=== PATIENT | female | born 1960 | race Caucasian/White ===

== ENCOUNTER → 2018-06-13 | Outpatient (CLI) | payer OTHER ==
[2018-06-13 10:57] VITALS: BP 137/85; PULSE 77; RESP 18; TEMP 98; BMI 28.0
--- NOTE | 2018-06-13 11:22 | P.GSHP ---
History of Present Illness H&P Date: 06/13/18 Chief Complaint: bilateral mastectomy Aide is a 57-year-old white female status post bilateral mastectomy with reconstruction in April 2017. She did not have breast cancer at that time however had a very strong family history with one sister at age 59 of breast cancer and a second sister who have been diagnosed with breast cancer. She was tested for the BRCA1 gene and found to be negative. The time of surgery the right breast revealed benign breast tissue with duct ectasia, apocrine metaplasia, focal papillary hyperplasia, fat necrosis and focal columnar cell change the left breast revealed benign breast tissue with duct ectasia, apocrine metaplasia and fat necrosis. Patient at this time has no complaints related to the breast surgery or reconstruction. Family history: 1. Sister of breast cancer at age 59 2. Second sister diagnosed with breast cancer/second breast cancer in opposite breast Hormonal History: menarche: 12 : 2, first born at 22, 2 children, breast fed: no Menopause: 54 BCP: 1 year hormones: none Surgical history: 1. Bilateral mastectomy with reconstruction 2. 2 3. Hysterectomy did not remove ovaries 4. tonsil 5. total thyroid/hyperactive Medical history: negative Social history: Smoke: Negative alcohol: Negative drugs: Negative - Constitutional Constitutional: Denies chills, Denies fever - EENT Eyes: denies blurred vision, denies pain Ears, nose, mouth and throat: Denies headache, Denies sore throat - Breasts Breasts: bilateral: as per HPI - Cardiovascular Cardiovascular: Denies chest pain, Denies shortness of breath - Respiratory Respiratory: Denies cough, Denies 7 - Gastrointestinal Gastrointestinal: Denies abdominal pain, Denies diarrhea, Denies nausea, Denies vomiting - Genitourinary (Female) Genitourinary: Denies dysuria, Denies hematuria - Musculoskeletal Musculoskeletal: Denies myalgias - Integumentary Integumentary: Denies pruritus, Denies rash - Neurological Neurological: Denies numbness, Denies weakness - Psychiatric Psychiatric: Denies anxiety, Denies depression - Endocrine Endocrine: Denies fatigue, Denies weight change - Hematologic/Lymphatic Comment: none - Allergic/Immunologic Comment: PCN Allergic/Immunologic: Reports seasonal allergies Past Medical History Past Medical History: Thyroid Disorder Additional Past Medical History / Comment(s): SINUS/ ALLERGIES History of Any Multi-Drug Resistant Organisms: None Reported Past Surgical History: Section, Hysterectomy, Tonsillectomy Additional Past Surgical History / Comment(s): THYROIDECTOMY. LYMPH NODES REMOVED FROM LT SIDE OF NECK AT AGE 4YR. bilateral mastectomy 2017 with reconstruction Past Anesthesia/Blood Transfusion Reactions: No Reported Reaction Past Psychological History: No Psychological Hx Reported Smoking Status: Former smoker Past Alcohol Use History: Occasional Past Drug Use History: None Reported - Past Family History Sister(s) Family Medical History: Cancer Medications and Allergies Home Medications Medication Instructions Recorded Confirmed Type Levothyroxine Sodium [Synthroid] 200 mcg PO DAILY 04/20/14 06/13/18 History Allergies Allergy/AdvReac Type Severity Reaction Status Date / Time Penicillins Allergy Anaphylaxis Verified 06/13/18 10:56 Surgical - Exam Vital Signs Temp Pulse Resp BP Pulse Ox 98 F 77 18 137/85 99 06/13/18 10:47 06/13/18 10:47 06/13/18 10:47 06/13/18 10:47 06/13/18 10:47 BMI 28.1 - General well developed, well nourished, no distress - Eyes normal ocular movement, no icteric - ENT no hearing loss, decreased hearing - Neck no masses, trachea midline - Respiratory normal respiratory effort, clear to auscultation - Cardiovascular Rhythm: regular Heart Sounds: normal: S1, S2 - Abdomen Abdomen: soft, non tender, no guarding, no rigid, no rebound - Integumentary no rash, no abnormal pigmentation - Neurologic no disoriented, no combative - Musculoskeletal normal gait, normal posture - Psychiatric oriented to time, oriented to person, oriented to place, speech is normal, memory intact Breast Exam: right breast: status post bilateral mastectomy and reconstruction, patient of the right reconstructed breast does not reveal any dominant masses or nodules of concern Right axilla: No adenopathy of concern Left breast: Status post mastectomy and reconstruction examination of the reconstructed breast does not reveal any dominant masses or nodules of concern Left axilla: No adenopathy of concern Assessment and Plan Assessment: Impression: 1. Very strong history of breast cancer 2. Bilateral mastectomy with reconstruction no evidence of rest cancer 3. Discussion has questions regarding need for bilateral oophrectomy, secondary to the fact that she does not have any family history of ovarian cancer nor is she BRCA 1 positive we have not recommended and oophrectomy at this time Plan: 1. Close surveillance with repeat exam in 1 year 2. 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 Velasquez
== END | disposition home or self-care (01) ==
LOC: WWCWWP 10:33
PROVIDERS: ATTEND Surgery
DX: Z53.9 Procedure and treatment not carried out, unspecified reason (principal)

== ENCOUNTER → 2018-07-03 | Outpatient (CLI) | payer OTHER ==
[2018-07-03 10:09] VITALS: BP 149/81; PULSE 72; RESP 16; TEMP 96.9; BMI 28.0
--- NOTE | 2018-07-03 12:47 | P.HPOB ---
History of Present Illness H&P Date: 07/03/18 Chief Complaint: The patient is here for her routine gynecologic exam. This is a 57-year-old G2 PII with an LMP of 1999. She is status post TRAY in 2003 benign bleeding. The patient states it is been about 2 years since her last pelvic exam. She was told by someone that she no longer needed pelvic exams because of her previous hysterectomy. She feels uncomfortable not having pelvic exams and would also like to discuss her strong family history of breast cancer. She is wondering if bilateral oophorectomy would be beneficial for her because of her strong family history of breast cancer. She has not been diagnosed with breast cancer, but underwent bilateral mastectomy in 2017 because she had 2 sisters who had HER2 positive breast cancer. One sister from breast cancer and another sister is still alive and she takes tamoxifen. The patient and both of her sisters all tested negative for BRCA gene mutation, according to the patient. She states she is postmenopausal and denies abdominal or pelvic discomfort or bloating. She was once told her grandfather' s sister may have had ovarian cancer, but there is no other history of ovarian cancer in the family. Review of Systems The patient has gained 15 pounds over the last 2years. She states she had decreased activity after she had her bilateral mastectomy surgery and seemed to eat more after that surgery. She denies respiratory, cardiac, or G.I. problems. Past Medical History Past Medical History: Thyroid Disorder (Hypothyroid) Additional Past Medical History / Comment(s): SINUS/ ALLERGIES. 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 She is BRCA negative. History of Any Multi-Drug Resistant Organisms: None Reported Past Surgical History: Breast Surgery (Bilateral prophylactic mastectomies with reconstruction), Section (x2), Hysterectomy, Tonsillectomy Additional Past Surgical History / Comment(s): THYROIDECTOMY. LYMPH NODES REMOVED FROM LT SIDE OF NECK AT AGE 4YR. bilateral mastectomy 2017 with reconstruction Past Anesthesia/Blood Transfusion Reactions: No Reported Reaction Past Psychological History: No Psychological Hx Reported Smoking Status: Former smoker (Quit 2014) Past Alcohol Use History: Occasional (About 3 drinks every 2 weeks) Past Drug Use History: None Reported Additional History: She has been since 2009 and this is her 2nd marriage. 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 - Past Family History Sister(s) Family Medical History: Cancer Additional Family Medical History / Comment(s): 2 sisters had breast cancer that were HER2 positive. Both sisters tested negative for the BRCA gene mutation. Mother Additional Family Medical History / Comment(s): Has a pacemaker. She was told her grandfather's sister had ovarian cancer. Father Family Medical History: Unable to Obtain Additional Family Medical History / Comment(s): She denies family history of cancer the uterus or colon. Medications and Allergies Home Medications Medication Instructions Recorded Confirmed Type Levothyroxine Sodium [Synthroid] 200 mcg PO DAILY 04/20/14 07/03/18 History Biotin 10,000 mcg PO DAILY 07/03/18 07/03/18 History Ergocalciferol (Vitamin D2) 50,000 unit PO WEEKLY 07/03/18 07/03/18 History [Vitamin D2] Allergies Allergy/AdvReac Type Severity Reaction Status Date / Time Penicillins Allergy Anaphylaxis Verified 07/03/18 09:58 Exam Vital Signs Temp Pulse Resp BP 07/03/18 10:02 96.9 F L 72 16 149/81 Intake and Output 07/02/18 07/03/18 07/03/18 22:59 06:59 14:59 Other: Weight 86.183 kg Height 5'9", weight 190 pounds, BMI 28.1. This is a well-developed well-nourished white female who is alert and oriented times 3 in no acute distress. HEENT: Within normal limits. NECK: Supple without mass or thyromegaly. CHEST AND LUNGS: Clear to auscultation. HEART: Regular rate and rhythm. BREASTS: Are without mass or discharge. They are consistent with nipple sparing bilateral mastectomies with reconstruction using implants. AXILLARY EXAM: Negative for adenopathy. BACK: Negative for CVA tenderness. ABDOMEN: Soft, nontender, without palpable masses. PELVIC EXAM: External genitalia appears normal with mild atrophy. Vagina appears normal mild atrophy. There is no evidence of prolapse. The vaginal cuff is well supported. Bimanual examination is negative for mass or tenderness. RECTAL EXAM: Rectovaginal exam is negative for mass or tenderness and is negative for occult blood. EXTREMITIES: Nontender. IMPRESSION: 1. 57-year-old menopausal female status post TRAY for benign reasons with normal gynecologic exam. 2. Strong family history of breast cancer in 2 sisters who both had HER2+ breast cancer. 3. The patient and her 2 sisters with breast cancer all tested negative for BRCA gene mutation, according to the patient. 4. Family history of ovarian cancer in a distant relative (great aunt). 5. The patient is status post bilateral mastectomies with reconstruction done for prevention because of her family history. PLAN: 1. Pap smears have been discontinued. 2. Self breast awareness was discussed with the patient. 3. Mammograms have been discontinued after her prophylactic mastectomies. 4. We had a long discussion regarding her family history, bilateral mastectomies, negative BRCA status and the risk of ovarian cancer. Her biggest concern was the possibility of developing breast cancer which could be stimulated by estrogen produced by her ovaries. I have told her that her bilateral mastectomies are probably the biggest risk reducing procedure to reduce the risk of breast cancer. Since she is menopausal and BRCA negative, I do not believe there would be much benefit to doing bilateral oophorectomies in reducing the risk for developing breast cancer. We also discussed the small risk of developing ovarian cancer. Her risk is probably only minimally elevated over the general population with a family history of a great aunt having ovarian cancer. 5. We will do a baseline pelvic ultrasound, and if there is no evidence of ovarian neoplasm, I have recommended yearly pelvic exams. Future pelvic ultrasounds can be considered if she develops symptoms or if there are any physical findings on exam. 6. After our long discussion, the patient seems reassured regarding her concerns for developing breast cancer. She would also like to go without surgery to remove the ovaries at this time. 7.Osteoporosis prevention was discussed. I have stressed the importance of adequate calcium, vitamin D and regular exercise. Recommended amounts of calcium and vitamin D were also discussed. She said she had a previous normal bone density test. We will plan on doing the next bone density test at age 61. 8. She will return in one year for her annual well woman exam. She will also return PRN if she develops any unusual pelvic, abdominal or vaginal symptoms.
== END | disposition home or self-care (01) ==
LOC: WWCWWP 09:28
PROVIDERS: ATTEND Obstetrics & Gynecology
DX: Z53.9 Procedure and treatment not carried out, unspecified reason (principal)

== ENCOUNTER → 2018-07-12 | Outpatient (CLI) | payer OTHER ==
--- NOTE | 2018-07-12 08:30 | US ---
EXAMINATION TYPE: US pelvis complete transvag DATE OF EXAM: 07/12/2018 COMPARISON: NONE CLINICAL HISTORY: Z80.41 Family hx of malignant neoplasm of ova. Family hx of breast and ovarian canc er. Partial hysterectomy around 1999. TECHNIQUE: Transvaginal (TV) and Transabdominal (TA) . Transabdominal sonographic images of the pel vis were acquired. Transvaginal sonographic images were medically necessary to better assess the fol lowing anatomy: Ovaries Date of LMP: Partial hysterectomy EXAM MEASUREMENTS: Left Ovary: 2.8 x 1.0 x 1.0 cm 1. Uterus: Surgically absent 2. Endometrium: Surgically absent 3. Right Ovary: Obscured by overlying bowel gas 4. Left Ovary: small uncomplicated appearing follicle seen measuring 1.1 x 1.0 x 0.7 cm with adjacen t multiple echogenic foci 5. Bilateral Adnexa: wnl 6. Posterior cul-de-sac: no free fluid IMPRESSION: 1. Obscuration of the right ovary by overlying bowel gas. 2. Subcentimeter ovarian follicle on the left measuring 1.1 cm appearing simple. Echogenic foci adjac ent to the left ovary could represent an ovarian vein phleboliths. This finding could be correlated w ith CT pelvis.
== END | disposition home or self-care (01) ==
LOC: RADUSWWP 07:26
PROVIDERS: ATTEND Obstetrics & Gynecology
DX: Z12.73 Encounter for screening for malignant neoplasm of ovary (principal); Z80.41 Family history of malignant neoplasm of ovary; Z80.3 Family history of malignant neoplasm of breast
CPT/HCPCS: 76830; 76856

== ENCOUNTER → 2018-07-23 | Outpatient (CLI) | payer OTHER ==
--- NOTE | 2018-07-24 14:51 | P.PN ---
Progress Note - Text Progress Note Date: 07/24/18 OUTPATIENT FOLLOW-UP NOTE TEST(S)/RESULTS: CA 125 test done on 07/23/2018 was normal. METHOD OF NOTIFICATION: she was notified by phone. PATIENT COMMENTS: the patient received the follow-up ultrasound order slip. DIAGNOSIS: benign appearing small ovarian cyst in a postmenopausal female with normal CA 125. DISCUSSION: PLAN: repeat pelvic ultrasound in 3 to 4 months. If this is stable we will plan on doing yearly pelvic ultrasounds. She was also instructed to call if she is having pelvic symptoms such as pain or discomfort, or abnormal abdominal bloating.
== END ==
LOC: LABWHC1 13:22
PROVIDERS: ATTEND Obstetrics & Gynecology
DX: D27.1 Benign neoplasm of left ovary (principal); D49.59 Neoplasm of unspecified behavior of other genitourinary organ; Z78.0 Asymptomatic menopausal state
CPT/HCPCS: 36415; 86304

== ENCOUNTER → 2018-07-31 | Outpatient (CLI) | payer OTHER ==
--- NOTE | 2018-07-31 13:06 | CT ---
EXAMINATION TYPE: CT pelvis w con DATE OF EXAM: 07/31/2018 COMPARISON: 07/12/2018 ultrasound INDICATION: Left ovarian cyst DLP: 1140.5 mGycm, Automated exposure control for dose reduction was used. CONTRAST: 100 mL of Isovue 300. Study performed with Oral Contrast TECHNIQUE: Axial images were obtained from iliac crest to the pubic rami in the axial plane at 5 mm t hick sections. Reconstructed images are reviewed on the computer in the coronal plane. FINDINGS: Lower abdominal structures within the [id number] appear unremarkable. CT PELVIS: Loops of bowel within the abdomen and pelvis are normal. There are loops of bowel which are incom pletely distended or lack oral contrast limiting their evaluation. Scattered diverticuli are within t he sigmoid colon. No acute diverticulitis is evident. Appendix: Normal as visualized. Urinary bladder: Normal. Some contrast is present within the urinary bladder on the delayed images. Genitourinary structures: Uterus and right ovary is not identified. No free fluid is within the pelvi s. Patient's previous left ovarian cyst is not identified. What may be the left ovary along the iliac chain region appears unremarkable. Osseous structures: No suspicious lytic or sclerotic lesions. Sacroiliac joint spaces appear normal. Phleboliths are present within the pelvis. There is a small calcification adjacent to the left ovary which could correspond to the findings by ultrasound. IMPRESSIONS: 1. Diverticulosis without evidence of acute diverticulitis. 2. No suspicious left ovarian cyst
== END | disposition home or self-care (01) ==
LOC: RADCTMAIN 07:11
PROVIDERS: ATTEND Internal Medicine
DX: Z09 Encounter for follow-up examination after completed treatment for conditions other than malignant neoplasm (principal); Z87.42 Personal history of other diseases of the female genital tract; Z88.0 Allergy status to penicillin; Z88.1 Allergy status to other antibiotic agents; Z88.8 Allergy status to other drugs, medicaments and biological substances
CPT/HCPCS: 72193; Q9967

== ENCOUNTER → 2019-07-18 | Outpatient (CLI) | payer OTHER ==
--- NOTE | 2019-07-18 08:33 | US ---
EXAMINATION TYPE: US pelvis complete transvag DATE OF EXAM: 07/18/2019 COMPARISON: US & CT CLINICAL HISTORY: N83.0 LEFT OVARIAN CYST, Z80.41 FAMILY HISTORY OF. TECHNIQUE: Transvaginal (TV) and Transabdominal (TA) . Transabdominal sonographic images of the pel vis were acquired. Transvaginal sonographic images were medically necessary to better assess the fol lowing anatomy: left ovary Date of LMP: partial hysterectomy 20 years ago EXAM MEASUREMENTS: Uterus: Surgically absent Endometrial Stripe: Surgically absent Right Ovary: Surgically absent Left Ovary: 2.1 x 0.7 x 1.8 cm 1. Uterus: Surgically absent 2. Endometrium: Surgically absent 3. Right Ovary: Surgically absent 4. Left Ovary: 1.0 x 0.6 x 1.1 cm hypoechoic lesion with peripheral calcifications noted and some in ternal echoes. This appears minimally more complex than the prior. 19. 5. Bilateral Adnexa: wnl 6. Posterior cul-de-sac: no free fluid IMPRESSION: Increasing internal complexity of the 1.1 cm left ovarian lesion with new peripheral calc ifications and internal echoes. Enhanced pelvic MRI or surgical consultation could be considered.
--- NOTE | 2019-07-22 10:53 | P.PN ---
Progress Note - Text Progress Note Date: 07/22/19 OUTPATIENT FOLLOW-UP NOTE TEST(S)/RESULTS: Pelvic ultrasound done on 07/18/19 shows a 1.1 cm left ovarian lesion with some calcifications and internal echoes. This is the same size from her previous ultrasound one year ago. METHOD OF NOTIFICATION: The patient was notified by phone. PATIENT COMMENTS: Patient has some concerns because of her sister's history of cancer (not ovarian). DIAGNOSIS: 1.1 cm left ovarian lesion unchanged in size from her pelvic ultrasound one year ago. DISCUSSION: I have reviewed the ultrasound images with Dr. Grimaldo, the radiologist, he feels that short-term pelvic ultrasound can be done to check for changes in 6 months. PLAN: Repeat pelvic ultrasound in 6 months. The patient was instructed to call she is having any unusual pelvic or abdominal symptoms. The order slip will be mailed to the patient.
== END | disposition home or self-care (01) ==
LOC: RADUSWWP 06:48
PROVIDERS: ATTEND Obstetrics & Gynecology
DX: N83.8 Other noninflammatory disorders of ovary, fallopian tube and broad ligament (principal); Z80.41 Family history of malignant neoplasm of ovary
CPT/HCPCS: 76830; 76856

== ENCOUNTER → 2020-09-15 | Outpatient (CLI) | payer OTHER | END | disposition home or self-care (01) | LOC: LABWHC1 15:27 | PROVIDERS: ATTEND Family Medicine | DX: Z20.822 Contact with and (suspected) exposure to COVID-19 (principal) | CPT/HCPCS: U0003; C9803 ==

== ENCOUNTER → 2021-02-15 | Outpatient (CLI) | payer OTHER ==
[2021-02-15 14:15] LABS: HCT 46.2 % (37.2-46.3); MCH 29.6 pg (27.0-32.0); MCHC 32.5 g/dL (32.0-37.0); MCV 91.1 fL (80.0-97.0); Mean Platelet Volume 10.4 fL (9.5-12.2); Platelet Count 169 X 10*3/uL (140-440); RBC 5.07 X 10*6/uL (4.10-5.20); RDW 12.4 % (11.5-14.5)
== END | disposition home or self-care (01) ==
LOC: LABWHC1 08:05
PROVIDERS: ATTEND Obstetrics & Gynecology
DX: R00.1 Bradycardia, unspecified (principal)
CPT/HCPCS: 36415; 85027; 93005

== ENCOUNTER 2023-10-09 10:11 | Day surgery (SDC) | payer OTHER ==
[2023-10-09] MEDS: LACTATED RINGERS 1,000 ML IV SCH (11:00)
[2023-10-09 11:24] VITALS: RESP 16; TEMP 97.2
[2023-10-09] MEDS: fentaNYL (PF) 50 MCG/ML 2 ML AMP IVP ONE (11:27)
[2023-10-09] MEDS ORDERED: PROPOFOL 10 MG/ML 20 ML VIAL IV ONE (11:40)
--- NOTE | 2023-10-09 11:49 | P.GSHP ---
History of Present Illness H&P Date: 10/09/23 Chief Complaint: Colon cancer screening 63-year-old female here for colonoscopy. Last colonoscopy 5 years ago. Patient was told she had polyps. No family history of colon cancer. No bowel complaints. Past Medical History Past Medical History: Hypertension, Thyroid Disorder Additional Past Medical History / Comment(s): SINUS/ ALLERGIES. 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 She is BRCA negative. History of Any Multi-Drug Resistant Organisms: None Reported Past Surgical History: Breast Surgery, Section, Hysterectomy, Tonsillectomy Additional Past Surgical History / Comment(s): THYROIDECTOMY. LYMPH NODES REMOVED FROM LT SIDE OF NECK AT AGE 4YR. bilateral mastectomy 2017 with reconstruction Past Anesthesia/Blood Transfusion Reactions: No Reported Reaction Additional Past Anesthesia/Blood Transfusion Reaction / Comment(s): nausea Smoking Status: Former smoker - Past Family History Sister(s) Family Medical History: Cancer Additional Family Medical History / Comment(s): 2 sisters had breast cancer that were HER2 positive. Both sisters tested negative for the BRCA gene mutation. Mother Additional Family Medical History / Comment(s): Has a pacemaker. She was told her grandfather's sister had ovarian cancer. Father Family Medical History: Unable to Obtain Additional Family Medical History / Comment(s): She denies family history of cancer the uterus or colon. Medications and Allergies Home Medications Medication Instructions Recorded Confirmed Type Levothyroxine Sodium [Synthroid] 112 mcg PO DAILY 04/20/14 10/09/23 History Multivitamin [Multivitamins Adult 1 each PO DAILY 07/08/19 10/05/23 History Gummies] Fexofenadine/Pseudoephedrine 1 tab PO DAILY 10/05/23 10/09/23 History [Una-D 24 Hour Tablet] Allergies Allergy/AdvReac Type Severity Reaction Status Date / Time Penicillins Allergy Anaphylaxis Verified 10/09/23 10:48 Surgical - Exam Vital Signs Temp Pulse Resp BP Pulse Ox 97.2 F L 80 16 170/91 94 L 10/09/23 10:54 10/09/23 10:54 10/09/23 10:54 10/09/23 10:54 10/09/23 10:54 Physical exam: General: Well-developed, well-nourished HEENT: Normocephalic, sclerae nonicteric Abdomen: Nontender, nondistended Extremities: No edema Neuro: Alert and oriented Assessment and Plan (1) Colon cancer screening Narrative/Plan: Will proceed with colonoscopy at this time. Current Visit: Yes Status: Acute Code(s): Z12.11 - ENCOUNTER FOR SCREENING FOR MALIGNANT NEOPLASM OF COLON SNOMED Code(s): 490679082
--- NOTE | 2023-10-09 11:56 | P.PCN ---
Date of Procedure: 10/09/23 Procedure(s) Performed: PREOPERATIVE DIAGNOSIS: Screening with history of polyps POSTOPERATIVE DIAGNOSIS: Tortuous colon PROCEDURE: Aborted colonoscopy ANESTHESIA: MAC SURGEON: Andrew Pavon M.D. SPECIMENS: None ENDOSCOPIC PROCEDURE: The patient was placed on the endoscopy table in the left decubitus position. The Olympus colonoscope was inserted into the anus and passed under direct visualization to the rectosigmoid junction. The patient had a very tight turn at the proximal sigmoid. The pediatric scope was already being utilized. As I was advancing through the tight turn I could see some bruising of the mucosa. As the scope was withdrawn from there I could see a linear mucosal tear present. This was not bleeding. This did not appear to be deep in nature. Given the location and the difficult angulation at that turn I aborted any further attempts. There was no visible diverticulosis seen. Digital rectal examination was normal. The patient was taken to the recovery room in stable condition per anesthesia guidelines. RECOMMENDATIONS: Resume diet. Will schedule patient for barium enema or virtual colonoscopy as outpatient. Would not do that today despite the patient's prep because of the mucosal tears seen on exam. Disposition: other
[2023-10-09 12:56] VITALS: BP 146/87; PULSE 66
== END 2023-10-09 12:37 | disposition home or self-care (01) ==
LOC: ORWHC2ENDO 10:11
PROVIDERS: ATTEND Surgery
DX: Z12.11 Encounter for screening for malignant neoplasm of colon (principal); K56.2 Volvulus; I10 Essential (primary) hypertension; E07.9 Disorder of thyroid, unspecified; Z90.710 Acquired absence of both cervix and uterus; Z98.890 Other specified postprocedural states; Z87.891 Personal history of nicotine dependence; Z80.3 Family history of malignant neoplasm of breast; Z79.890 Hormone replacement therapy; Z88.0 Allergy status to penicillin
CPT/HCPCS: 45378; J3010; J2704

== ENCOUNTER → 2024-03-06 | Outpatient (CLI) | payer OTHER ==
--- NOTE | 2024-03-06 10:49 | BD ---
EXAMINATION TYPE: Axial Bone Density DATE OF EXAM: 03/06/2024 CLINICAL HISTORY: 63 years old Female. ICD-10 CODE: M89.9 OTHER DISORDER OF BONE Height: 67.25 Weight: 198 FRAX RISK QUESTIONS: Family History (Parent hip fracture): no History of Fracture in Adulthood: no Secondary Osteoporosis: no RISK FACTORS HISTORY OF: Surgery to Spine/Hip(right/left)/Wrist (right/left): no MEDICATIONS: Thyroid Medications: yes Which medication: Synthroid How Long: years Osteoporosis Medications: no EXAM MEASUREMENTS: Bone mineral densitometry was performed using the [employer] System. Bone mineral density as measured about the Lumbar spine is: ----- L1-L4(G/cm2): 0.984 T Score Values are as follows: ----- L1: -1.7 ----- L2: -2.0 ----- L3: -1.5 ----- L4: -1.5 ----- L1-L4: -1.6 Z Score Values are as follows: ----- L1: -1.1 ----- L2: -1.5 ----- L3: -0.9 ----- L4: -1.0 ----- L1-L4: -1.1 Bone mineral density baseline Bone mineral density about the R hip (g/cm2): 0.858 Bone mineral density about the L hip (g/cm2): 0.912 T Score values are as follows: -----R Neck: -1.1 -----L Neck: -0.7 -----R Total: -1.2 -----L Total: -0.8 Z Score values are as follows: -----R Neck: -0.3 -----L Neck: 0.1 -----R Total: -0.7 -----L Total: -0.3 Bone mineral density baseline FRAX%s: The graph provided illustrates a 7.5% chance for a major osteoporotic fx and a 0.5% chance fo r the hips probability for fx in 10 years time. IMPRESSION: Osteopenia (T Score between -2.5 and -1). There is slightly increased risk of fracture and the patient may be considered for treatment. Re-Screen 2-5 years. NOTE: T-SCORE=SD OF THE YOUNG ADULT MEAN. [facility], , 03/06/2024 10:47 AM
== END | disposition home or self-care (01) ==
LOC: RADBDWWP 06:50
PROVIDERS: ATTEND Internal Medicine Geriatric Medicine
DX: M85.89 Other specified disorders of bone density and structure, multiple sites (principal)
CPT/HCPCS: 77080

== ENCOUNTER → 2024-08-13 | Outpatient (CLI) | payer OTHER ==
--- NOTE | 2024-08-14 12:26 | BMR ---
EXAM DATE: 08/13/2024 EXAM DESCRIPTION: MRI-Breast Bilat (W/WO Contrast) INDICATION: Left breast pain, bilateral implants, strong family history of breast cancer COMPARISON: PRIOR MRIs: None available. Correlation to mammograms: 02/14/2017. Correlation to ultrasound: None available. CONTRAST: 9 cc Gadavist IV gadolinium contrast TECHNIQUE: Study was performed at [facility] with Radiologic interpretation by [facility] Multiplanar multisequence MR imaging of both breasts was performed with a dedicated breast coil. Images were obtained before and after administration of IV gadolinium, using the standard breast mass protocol. Computer aided detection was utilized for interpretation. FINDINGS: LMP: Postmenopausal General breast composition: The breasts are almost entirely fatty Background parenchymal enhancement: Minimal RIGHT BREAST: The T2 weighted series shows no areas of abnormal signal intensity. Subpectoral implant appears intact. Review of the dynamic series shows no early or abnormal enhancement. LEST BREAST: The T2 weighted series shows no areas of abnormal signal intensity. Subpectoral in cleaned appears intact. Review of the dynamic series shows no early or abnormal enhancement. LYMPH NODES: There is no evidence of internal mammary or axillary adenopathy. IMPRESSION: RIGHT BREAST: No MR evidence of malignancy. LEFT BREAST: No MR evidence of malignancy. OVERALL ASSESSMENT -- BI- RADS 1: Negative Negative breast MRI does not exclude presence of malignancy particularly DCIS or abnormal calcifications not seen by MRI. Mammogram is recommended if not performed within the last 12 months. ANNUAL SCREENING BREAST MRI IN ADDITION TO MAMMOGRAPHY IS RECOMMENDED IN PATIENTS WITH LIFETIME RISK OF BREAST CANCER >20% MTDD
== END | disposition home or self-care (01) ==
LOC: RADMRIMAIN 05:45
PROVIDERS: ATTEND Surgery
DX: N64.4 Mastodynia (principal); R92.313 Mammographic fatty tissue density, bilateral breasts; Z98.82 Breast implant status; Z78.0 Asymptomatic menopausal state
CPT/HCPCS: 77049; A9585